=== PATIENT | female | born 1970 | race Caucasian/White ===

== ENCOUNTER → 2018-02-03 | Outpatient (CLI) | payer BC ==
--- NOTE | 2018-02-03 19:43 | ECHOF ---
Referral Reason:R06.09 dyspnea on exertion MEASUREMENTS -------- HEIGHT: 165.1 cm WEIGHT: 99.8 kg BP: RVIDd: 3.1 cm (< 3.3) IVSd: 1.1 cm (0.6 - 1.1) LVIDd: 4.8 cm (3.9 - 5.3) LVPWd: 1.1 cm (0.6 - 1.1) IVSs: 1.7 cm LVIDs: 2.7 cm LVPWs: 1.7 cm LAESV Index (A-L): 24.50 ml/m Ao Diam: 2.8 cm (2.0 - 3.7) AV Cusp: 1.9 cm (1.5 - 2.6) LA Diam: 3.1 cm (2.7 - 3.8) EPSS: 0.8 cm MV E Daniel: 0.94 m/s MV DecT: 194 ms MV A Daniel: 0.68 m/s MV E/A Ratio: 1.38 RAP: 5.00 mmHg RVSP: 21.60 mmHg MV EF SLOPE: 161.39 mm/s (70 - 150) MV EXCURSION: 2.08 cm (> 18.000) FINDINGS -------- Sinus rhythm. This was a technically good study. The left ventricular size is normal. There is borderline concentric left ventricular hypertrophy. Overall left ventricular systolic function is normal with, an EF between 55 - 60 %. The right ventricle is normal in size and function. Normal LA size by volume 22+/-6 ml/m2. The right atrium is normal in size. Aortic valve is trileaflet and is mildly thickened. There is no evidence of aortic regurgitation. There is no evidence of aortic stenosis. The mitral valve leaflets are mildly thickened. There is trace to mild mitral regurgitation. Trace tricuspid regurgitation present. Right ventricular systolic pressure is normal at < 35 mmHg. There is no evidence of pulmonary hypertension. Trace/mild (physiologic) pulmonic regurgitation. The aortic root size is normal. Normal inferior vena cava with normal inspiratory collapse consistent with estimated right atrial pre ssure of 5 mmHg. There is no pericardial effusion. CONCLUSIONS -------- 1. Sinus rhythm. 2. This was a technically good study. 3. The left ventricular size is normal. 4. There is borderline concentric left ventricular hypertrophy. 5. Overall left ventricular systolic function is normal with, an EF between 55 - 60 %. 6. Normal LA size by volume 22+/-6 ml/m2. 7. Aortic valve is trileaflet and is mildly thickened. 8. The mitral valve leaflets are mildly thickened. 9. There is trace to mild mitral regurgitation. 10. Trace tricuspid regurgitation present. 11. Right ventricular systolic pressure is normal at < 35 mmHg. 12. There is no evidence of pulmonary hypertension. 13. Trace/mild (physiologic) pulmonic regurgitation. 14. The aortic root size is normal. 15. There is no pericardial effusion. BILLING DEPARTMENT SUPERVISOR: Reilly Barkley RDCS
== END | disposition home or self-care (01) ==
LOC: RADECHMAIN 08:22
PROVIDERS: ATTEND Family Medicine
DX: I34.0 Nonrheumatic mitral (valve) insufficiency (principal); I37.1 Nonrheumatic pulmonary valve insufficiency; I51.7 Cardiomegaly; I35.8 Other nonrheumatic aortic valve disorders
CPT/HCPCS: 93306

== ENCOUNTER → 2018-03-17 | Outpatient (CLI) | payer BC ==
--- NOTE | 2018-03-17 15:11 | CONS ---
CONSULTATION DATE OF SERVICE: 03/17/2018 A 47-year-old lady has been evaluated in the [facility] for possible obstructive sleep apnea-hypopnea syndrome and for significant excessive daytime sleepiness. HISTORY OF PRESENT ILLNESS/SLEEP-WAKE EVALUATION: Patient's usual sleep schedule from midnight - 1 am until 9 - 9:30 am. She does have problem with falling asleep. Has TV set in bedroom. During the sleep, she is taking different positions. She sleeps with snoring and wakes up from sleep with episodes of gasping for air. In the morning, she wakes up tired, falling asleep during the day. [place] Sleepiness Scale significantly increased to 16. She may take naps up to 2 times, usually around 2 -3 pm. She usually does not see dreams during naps but feel refreshed after naps. No history of hypnagogic hallucinations, sleep paralysis or cataplexy. PAST MEDICAL HISTORY: Positive for hypertension. PAST SURGICAL HISTORY: . MEDICATIONS: Metoprolol. SOCIAL HISTORY: Negative for smoking. Alcohol consumption occasional. FAMILY HISTORY: Heart problems, snoring, cancer, thyroid problems, insomnia. REVIEW OF SYSTEMS: Awakenings from sleep, sleepiness during the day. PHYSICAL EXAM: lady without distress, BP 131/75, HR 72, RR 16, height 5 foot 5-1/8 inches. Weight 223 pounds. Body mass index 36.8, temperature 99. Oxygen saturation on room air 97%. OROPHARYNX: Mallampati III-IV. Neck 15 inches in circumference. Slight restriction of nasal breathing. ABDOMEN: Slightly diabetes. Neck Supple, no JVD. Thyroid is not palpable. LUNGS Clear to percussion and to auscultation. Good air exchange. No wheezing or rhonchi. HEART S1, S2 regular. No murmurs, gallops, or rubs. EXTREMITIES No clubbing or cyanosis. DIRECTOR OF EMERGENCY NURSING Awake, alert, and oriented X3. Cranial nerves 2 to 7 intact. There is no fasciculation or atrophy. noted. No focal deficits observed. IMPRESSION: 1. Snoring, awakenings from sleep with gasping for air, low position of soft palate, sleepiness, obstructive sleep apnea-hypopnea syndrome. 2. Mild obesity, body mass index 36.8. 3. Hypertension. 4. Significant excessive daytime sleepiness. [place] Sleepiness Scale significantly increased to 16. Differential diagnosis would include hypersomnia, although no history of hypnagogic hallucinations, sleep paralysis or cataplexy. PLAN: 1. Polysomnography for evaluation of patient's breathing during sleep. 2. Multiple sleep latency test if sleep study will be negative for obstructive sleep apnea-hypopnea syndrome. 3. CPAP/BiPAP titration if sleep study confirms obstructive sleep apnea-hypopnea syndrome. 4. Preferable position during sleep on the side. 5. No driving if patient feels any sleepiness. 6. I will see patient for follow up visit to explain results of testing and following plan. Thank you very much for referring this patient for consultation. Sincerely, Antonio Patton MD, PhD, FAASM Diplomat of [place] [employer] [place] [employer] Explosive Ordnance Disposal Manager of [facility] [place] MMODL / POOJAN: [id number] /
== END ==
LOC: SLEEP 14:04
PROVIDERS: ATTEND Internal Medicine
DX: G47.33 Obstructive sleep apnea (adult) (pediatric) (principal); E66.9 Obesity, unspecified; I10 Essential (primary) hypertension; Z68.36 Body mass index [BMI] 36.0-36.9, adult; Z99.89 Dependence on other enabling machines and devices; Z79.899 Other long term (current) drug therapy
CPT/HCPCS: 99211

== ENCOUNTER 2018-06-17 11:20 | Day surgery (SDC) | payer BC ==
[2018-06-16 08:45] VITALS: BMI 37.8
[2018-06-17] MEDS ORDERED: LACTATED RINGERS 1,000 ML IV ONE (11:47)
[2018-06-17 11:49] VITALS: TEMP 97.7
[2018-06-17] MEDS ORDERED: PROPOFOL 10 MG/ML 20 ML VIAL IV ONE (12:25)
--- NOTE | 2018-06-17 12:42 | P.PCN ---
Date of Procedure: 06/17/18 Procedure(s) Performed: BRIEF HISTORY: Patient is a 48-year-old pleasant female, scheduled for an elective colonoscopy as a part of screening for colorectal neoplasia. Her mother was diagnosed with colon cancer at age 50. PROCEDURE PERFORMED: Colonoscopy. PREOPERATIVE DIAGNOSIS: Screening for colon cancer/family history of colon cancer. IV sedation per Anesthesia. PROCEDURE: After informed consent was obtained, the patient, was brought into the endoscopy unit. IV sedation was administered by Anesthesia under continuous monitoring. Digital rectal examination was normal. Initially the Olympus CF-160 flexible video colonoscope was then inserted in the rectum, gradually advanced into the cecum without any difficulty. Careful examination was performed as the scope was gradually being withdrawn. Ileocecal valve and the appendiceal orifice were visualized and appeared normal. Prep was excellent. Mucosa of the cecum, ascending colon, transverse colon, descending colon, sigmoid colon, and rectum appeared normal. Scattered sigmoid diverticulosis Retroflexion was performed in the rectum and no lesions were seen. The patient tolerated the procedure well. IMPRESSION: Normal-appearing colon from rectum to cecum with no evidence of colon neoplasia. Scattered sigmoid diverticulosis. RECOMMENDATIONS: Findings of this examination were discussed with the patient as her family. She was advised to have a repeat screening colonoscopy in 5 years because of the family history of colon cancer.
[2018-06-17 12:47] VITALS: RESP 16
[2018-06-17 13:03] VITALS: BP 128/88; PULSE 67
== END 2018-06-17 13:21 | disposition home or self-care (01) ==
LOC: ORWHC2ENDO 11:20
PROVIDERS: ATTEND Internal Medicine Gastroenterology
DX: Z12.11 Encounter for screening for malignant neoplasm of colon (principal); K57.30 Diverticulosis of large intestine without perforation or abscess without bleeding; Z80.0 Family history of malignant neoplasm of digestive organs; I10 Essential (primary) hypertension; Z79.899 Other long term (current) drug therapy; Z88.0 Allergy status to penicillin
CPT/HCPCS: J2704; G0105; 45378

== ENCOUNTER → 2018-09-15 | Outpatient (CLI) | payer BC ==
--- NOTE | 2018-09-15 16:36 | PN ---
PROGRESS NOTE DATE OF SERVICE: 09/15/2018 48-year-old lady has been followed in Sleep Center for treatment of obstructive sleep apnea-hypopnea syndrome. Recently patient had a polysomnogram which showed that she has mild obstructive sleep apnea and then she was started on treatment with CPAP. Today is her first visit after she was started on treatment with CPAP. At the beginning, patient did have some problems with difficulties to use the machine, but then day by day she feels better and presently able to use her machine every night for the whole night without significant problems. [place] Sleepiness Scale today is 7. The patient reported that she sleeps better and she feels better during the day. I checked her CPAP unit, range of the pressure 5-15, average pressure 13.3, usage is every night and 29/30 nights more than 4 hours with average usage 5.8 hours. Leak is only 6 L/minutes which is perfect. Apnea-hypopnea index only 0.2, which is absolutely perfect. MEDICATIONS: Metoprolol. PHYSICAL EXAM: Patient in no distress. BP 147/87, HR 78, RR 16, weight 224, temp 98.2, oxygen saturation at room air 98%. Oropharynx low position of soft palate. Mallampati 3. Neck: Supple, no JVD. Thyroid is not palpable. LUNGS: Clear to percussion and to auscultation. Good air exchange. No wheezing or rhonchi. HEART S1, S2 regular. No murmurs, gallops, or rubs. ABDOMEN: Slightly obese. Soft and nontender. Bowel sounds are present. No organomegaly appreciated. EXTREMITIES No clubbing or cyanosis. TECHNICAL TRAINING INSTRUCTOR Awake, alert, and oriented X3. Cranial nerves 2 to 7 intact. There is no fasciculation or atrophy. noted. No focal deficits observed. IMPRESSION: 1. Obstructive sleep apnea-hypopnea syndrome in mild range with symptoms of excessive daytime sleepiness, respirations fully normalized on CPAP. The patient demonstrated 100% compliance with treatment, benefitting from treatment. No significant sleepiness during the day after the CPAP was started. 2. Hypertension. 3. Obesity. 4. No snoring on CPAP. PLAN: 1. Patient will continue to use CPAP equipment every night for the whole night. 2. Watching and losing weight. 3. Sleep hygiene with regular time in bed for at least 7.5 to 8 hours. 4. No driving if feeling sleepiness. 5. I will maintain all necessary prescriptions for CPAP supplies, tube filters. Thank you very much for allowing me to participate in management of your patient. Sincerely, Antonio Patton MD, PhD, FAASM Diplomat of [place] [employer] [place] [employer] Dietary Service Aide of [facility] [place] MMODL / POOJAN: [id number] /
== END | disposition home or self-care (01) ==
LOC: SLEEP 13:27
PROVIDERS: ATTEND Internal Medicine
DX: G47.33 Obstructive sleep apnea (adult) (pediatric) (principal); I10 Essential (primary) hypertension; E66.9 Obesity, unspecified; Z99.89 Dependence on other enabling machines and devices

== ENCOUNTER → 2019-03-23 | Outpatient (CLI) | payer BC ==
--- NOTE | 2019-03-23 09:04 | CT ---
EXAMINATION TYPE: CT soft tissue neck w con DATE OF EXAM: 03/23/2019 COMPARISON: HISTORY: abnormal MRI CT DLP: 522.4 mGycm CONTRAST: CT scan of the neck is performed with IV Contrast, patient injected with 100 mL of Isovue 300. Contrast enhanced CT of the neck was performed from the skull base through the lung apices. AIRWAY: The supraglottic, glottic, and subglottic portions of the airway appear patent and free of mass. SALIVARY GLANDS: The submandibular and parotid glands are free of mass or inflammatory process. THYROID GLAND: No nodules or masses seen. LYMPH NODES: No adenopathy seen greater than 1cm. LUNG APICES: No nodule or mass is seen. OTHER: Vascular structures are patent. Moderate degenerative changes of the cervical spine. Suspect osseous central stenosis at C5-6. No abscess seen. IMPRESSION: No distinct abnormality of the neck. Suspect central stenosis at C5-6.
== END | disposition home or self-care (01) ==
LOC: RADCTMAIN 08:31
PROVIDERS: ATTEND Orthopaedic Surgery Orthopaedic Surgery of the Spine
DX: M54.2 Cervicalgia (principal)
CPT/HCPCS: 70491; Q9967

== ENCOUNTER 2019-03-29 07:05 | Observation (INO) | payer BC ==
[2019-03-23 12:38] VITALS: BMI 36.1
[~2019-03-29 07:05] MED LIST: BACITRACIN 50,000 UNIT, POLYMYXIN B 500,000 UNIT in SODIUM CHLORIDE 0.9% IRRIGATIO 1,00... IRRIGATION ONE; DEXAMETHASONE SOD PHOSPHATE 10 MG/ML 1 ML VIAL IV ONE; LIDOCAINE 1% 20 ML VIAL (10MG/ML) FOR IV START INTRADERMA PRN; MIDAZOLAM 2 MG/2 ML VIAL IV PRN; ONDANSETRON 4 MG/2 ML VIAL IVP ONE; SCOPOLAMINE 1.5MG/72HR PATCH TRANSDERM ONE
[2019-03-29] MEDS: LACTATED RINGERS 1,000 ML IV SCH ×2 (07:44→23:45)
[2019-03-29] MEDS ORDERED: ROCURONIUM BROMIDE 10 MG/ML 5 ML VIAL IV ONE (07:56)
[2019-03-29] MEDS ORDERED: DEXAMETHASONE SOD PHOS (MDV) 100 MG/10 ML VIAL ONE (07:56)
[2019-03-29] MEDS ORDERED: LIDOCAINE 1% INJ 10MG/ML (20 ML MDV) ONE (07:56)
[2019-03-29] MEDS ORDERED: MIDAZOLAM 2 MG/2 ML VIAL ONE (07:56)
[2019-03-29] MEDS ORDERED: fentaNYL (PF) 50 MCG/ML 2 ML AMP ONE (07:56)
[2019-03-29] MEDS ORDERED: HYDROmorphone (PF) 1 MG/ML ONE (07:56)
[2019-03-29] MEDS ORDERED: SUCCINYLCHOLINE CHLORIDE 100 MG/5 ML SYR IV ONE (07:56)
[2019-03-29] MEDS ORDERED: PROPOFOL 10 MG/ML 20 ML VIAL IV ONE (07:56)
[2019-03-29] MEDS ORDERED: GELATIN SPONGE,ABSORB (LARGE) 1 EACH SPONGE TOPICAL ONE (07:59)
[2019-03-29] MEDS ORDERED: LIDOCAINE 0.5%-EPI 1:200,000 50 ML VIAL SQ ONE (07:59)
[2019-03-29] MEDS ORDERED: THROMBIN (BOVINE) 5,000 UNIT VIAL TOPICAL ONE (07:59)
--- NOTE | 2019-03-29 09:21 | XR ---
EXAMINATION TYPE: XR cervical spine 1V DATE OF EXAM: 03/29/2019 COMPARISON: None HISTORY: Needle placement TECHNIQUE: Lateral cervical spine FINDINGS: There is a metallic device directed to the C5-C6 disc space. Patient is intubated. Preverte bral space is normal. IMPRESSION: 1. Intraoperative localization with needle directed to the C5-6 level
[2019-03-29] MEDS ORDERED: LACTATED RINGERS 1,000 ML IV ONE (10:14)
[2019-03-29] MEDS ORDERED: HYDROcodone/APAP 5-325MG 1 EACH TAB PO PRN (10:41)
[2019-03-29] MEDS ORDERED: BENZOCAINE/MENTHOL LOZENG 1 EACH LOZENGE MUCOUS MEM PRN (10:41)
[2019-03-29] MEDS ORDERED: HYDROmorphone 0.5 MG/0.5 ML SYRINGE IVP PRN (10:41)
[2019-03-29] MEDS ORDERED: MAGNESIUM HYDROXIDE 2,400 MG/10 ML CUP PO PRN (10:41)
--- NOTE | 2019-03-29 10:48 | P.OP ---
Date of Procedure: 03/29/19 Preoperative Diagnosis: Cervical myelopathy, severe cervical stenosis C4 5 C5 6 C6 7, herniated nucleus pulposus C4 5 C5 6 C6 7, left upper extremity weakness, cervical radiculopathy, neck pain Postoperative Diagnosis: Same Anesthesia: GETA Pathology: none sent Condition: stable Disposition: PACU Description of Procedure: BRIEF OPERATIVE NOTE Preoperative Diagnosis:Cervical myelopathy, severe cervical stenosis C4 5 C5 6 C6 7, herniated nucleus pulposus C4 5 C5 6 C6 7, left upper extremity weakness, cervical radiculopathy, neck pain Postoperative Diagnosis:Cervical myelopathy, severe cervical stenosis C4 5 C5 6 C6 7, herniated nucleus pulposus C4 5 C5 6 C6 7, left upper extremity weakness, cervical radiculopathy, neck pain Procedure: Anterior cervical decompression with discectomy and fusion C4 5 C5 6 C6 7 Placement of interbody graftC4 5 C5 6 C6 7 Application of anterior cervical plateC4 5 C5 6 C6 7 Surgeon: Dr. Sarabia Hydroelectric Plant Operator: Hugo Perdomo is present throughout the entire the case persistence during positioning, dissection, exposure, visualization, and all crucial elements of the case as well as closure. Anesthesia: General anesthesia per Dr. Wallis Estimated blood loss: Approximately 100 mL Complications: None apparent Components implanted: Vikos interbody allograft bone graft and K2M [place] anterior cervical plate system with screws Disposition: To recovery room in good stable condition. OPERATIVE INDICATIONS The patient has had long-standing issues in their neck and upper extremities. She's been having severe symptoms since fall of last year which worsening for her despite aggressive conservative care. She didn't developing weakness in her upper extremity as well as some early myelopathic signs. She does not have severe disc herniations with severe stenosis C4 5 C5 6 and C6 7 which correlated well with her neck and upper extremity symptoms. The patient has been through conservative treatment. We discussed various treatment options including surgery, and the patient wishes to proceed with surgery We discussed the risk, patient's alternatives and benefits of surgery including but not limited to, risk of bleeding risk of infection, risk of need for further surgery, risk of decreased, loss of motion, muscle function, malunion nonunion, hardware failure, nerve damage, paralysis, heart attack, and . OPERATIVE SUMMARY After discussing all the risks, patient alternatives and benefits at length, the patient elected to proceed with surgical intervention, signed informed consent, and presented for their procedure. The patient was seen and examined in the preoperative holding area and the surgical site was marked. The patient was given antibiotics and brought to the operating room. The patient was positioned on the operating room table in a supine position being careful to pad any bony prominences and pressure points. The patient was sedated and intubated by anesthesia in standard fashion. Once the airway and C- spine were stabilized the patient's arms were padded and tucked at her side, with her shoulders gently taped. The head was placed in a donut pad with the neck in good neutral alignment and position. We were careful to maintain the patient's cervical spine and good neutral alignment and position throughout. The patient was prepped and draped in a normal standard fashion. An appropriate timeout and keystone protocol performed. We were able to proceed with the surgery. The local wound area was infiltrated with local anesthetic. An incision was made transversely approximately 2-1/2 cm over the appropriate levels at level of C6. Dissection was taken down subcutaneously to the level of the platysma which was split in line with its fibers. Dissection was taken with a carotid approach, with the trachea and esophagus medial and the carotid sheath laterally. We dissected down to the anterior surface of the vertebral bodies f rom C3 4 to C7. Intraoperative x-ray was taken which showed a marker at the appropriate level at C5 6. With the appropriate level positively confirmed, we were able to proceed with discectomy at the appropriate levels. All of the operative levels were exposed appropriately. The patient had all their twitches back, and there was no evidence of recurrent laryngeal issue. The wound was copiously irrigated and suctioned dry as had been done periodically throughout the case. At the appropriate level/levels, starting at C4 5 and then moving the 56 and then C6 7, I established an annulotomy with an 11 blade scalpel. A discectomy was performed with a combination of pituitary rongeurs, curettes, a high-speed bur, and Kerrison rongeurs. The posterior longitudinal ligament was taken down as were any posterior osteophytes. This gave good central and bilateral foraminal decompression. Note was made of severe large disc herniations particularly at C4 5 and C5 6 to the left side which causing severe distortion of the neural structures. There is large amounts of extruded disc herniation which had a be removed. This gave excellent decompression centrally and at the bilateral neural foramen at C4 5 C5 6 and C6 7. There is no evidence of any dural tear or leak. The endplates were prepared with a high-speed bur. With the endplates in good parallel position, I was able to size for the appropriate size interbody graft. The wound was irrigated and suctioned dry the graft was prepared and malleted into position. It had good alignment and position with the anterior surface flush with the anterior surface of the vertebral bodies. This was done similarly the appropriate levels at C4 5 C5 6 and C6 7. With the grafts intact, I was able to measure and contour and appropriate sized plate. The plate was positioned at the midline over the appropriate levels from C4 to C7. Screw holes were established with a hand drill and drill guide. Screws were placed in good alignment and position with excellent bony purchase. They were seated under the locking device. The construct was checked and found to be stable. Intraoperative x-ray was taken which showed good alignment and position of the implants at the appropriate levels. There was no evidence of any dural tear or leak. Good hemostasis was maintained. The wound was copiously irrigated and suctioned dry as had been done periodically throughout the case. The platysma was closed with absorbable suture. The subcutaneous tissue was closed. The subcuticular tissue was closed with absorbable suture. The wound was cleaned and dried and dressed appropriately. A soft cervical collar was placed appropriately. The patient was woken up by anesthesia, extubated, transferred back gently to their hospital bed and brought to the recovery room in good stable condition. The patient will be admitted to the hospital for appropriate postoperative care, medical management and monitoring. We will continue to follow them closely about the postoperative course.
--- NOTE | 2019-03-29 11:03 | XR ---
EXAMINATION TYPE: XR cervical spine 1V DATE OF EXAM: 03/29/2019 COMPARISON: Intraoperative cervical spine same date HISTORY: Anterior cervical fusion TECHNIQUE: Lateral cervical spine FINDINGS: Anterior cervical fusion is present C4-C7. Prevertebral space is normal. Patient is intubat ed. Disc spacers have been placed. IMPRESSION: 1. Postsurgical anterior cervical fusion.
[2019-03-29] MEDS: HYDROmorphone 0.5 MG/0.5 ML SYRINGE IVP PRN ×2 (11:08→11:14)
[2019-03-29] MEDS ORDERED: diphenhydrAMINE 50 MG/ML 1 ML VIAL IVP ONE (11:26)
[2019-03-29] MEDS ORDERED: ONDANSETRON 4 MG TAB PO PRN (17:42)
[2019-03-29] MEDS ORDERED: ONDANSETRON ODT 4 MG TAB PO PRN (18:03)
[2019-03-29] MEDS: HYDROcodone/APAP 5-325MG 1 EACH TAB PO PRN ×2 (18:12→23:46)
[2019-03-29] MEDS ORDERED: GABAPENTIN 300 MG CAP PO SCH (21:00)
[2019-03-29] MEDS: SODIUM CHLORIDE 0.9% 1,000 ML IV SCH (23:39)
[2019-03-30] MEDS: SODIUM CHLORIDE 0.9% 1,000 ML IV SCH ×2 (00:40→07:36)
[2019-03-30 08:41] VITALS: BP 124/68; PULSE 77; RESP 16; TEMP 98.3
--- NOTE | 2019-03-30 09:26 | P.DS ---
Providers Date of admission: 03/29/19 20:27 Attending physician: Evens Sarabia [facility] The patient presented on the day of admission as per their operative note. She had significant issues at her upper extremities and her neck with severe spinal stenosis with large disc herniations at her cervical spine that correlated well with her neck and upper extremity symptoms. The patient underwent anterior cervical decompression with discectomy and fusion as per her operative note. She feels her arms are doing better already since her surgery. She feels she is making good progress postoperatively. She is been able to tolerate soft diet and has been able to mobilize and use the bathroom on her own. Physical Exam The incision site is clean dry and intact. There is no erythema no drainage. There is no purulence no evidence of infection. Her neck is soft and supple. There is no significant swelling. Abdomen soft and nontender. Chest has good excursion with deep inspiration and expiration. The patient has active and passive range of motion intact at the upper and lower extremities. There is no acute change in neurologic status. She has good use at her bilateral upper extremities this morning. Hospital Course Postoperative day #1 status post anterior cervical decompression with discectomy and fusion C4 5 C5 6 C6 7 for her severe cervical stenosis with cervical myelopathy and disc herniations The patient has been making good progress postoperatively. She is happy with results thus far. They have completed the prophylactic antibiotics without any signs or symptoms of infection. The patient has been able to advance their diet, and is tolerating diet adequately. The pain was initially controlled with IV medications and is now controlled appropriately with oral medications. The p atient has been able to increase their mobilization. The patient has progressed appropriately. I think they are in good stable condition for discharge today. They will be sent home with appropriate prescriptions. I answered their questions to the best of my ability in a language that they can understand and they are agreeable with the plan. They will follow up as directed in approximately one week or sooner if she is having any problems. Patient Condition at Discharge: Good Plan - Discharge Summary Discharge Rx Participant: Yes New Discharge Prescriptions: New HYDROcodone/APAP 5-325MG [[place] 5] 1 each PO Q6HR PRN #28 tab PRN Reason: Pain No Action HYDROcodone/APAP 5-325MG [[place] 5-325] 1 tab PO Q6HR PRN PRN Reason: Pain Gabapentin [Neurontin] 300 mg PO HS Discharge Medication List Gabapentin [Neurontin] 300 mg PO HS 03/23/19 [History] HYDROcodone/APAP 5-325MG [[place] 5-325] 1 tab PO Q6HR PRN 03/23/19 [History] HYDROcodone/APAP 5-325MG [[place] 5] 1 each PO Q6HR PRN #28 tab 03/30/19 [Rx] Follow up Appointment(s)/Referral(s): Evens Sarabia DO [Doctor of Osteopathic Medicine] - 1 Week (Patient has appointment scheduled for for very ) Activity/Diet/Wound Care/Special Instructions: Keep site clean. May shower with waterproof Tegaderm intact. Do not soak in a tub. After 72 hours postoperatively, patient May remove dressing and then may shower with area uncovered. Leave Steri-Strips intact and allow them to fray off on their own. May ambulate as tolerated. Avoid heavy or rigorous activity. No repetitive bending twisting or lifting. No overhead work. Discharge Disposition: HOME SELF-CARE
== END 2019-03-30 11:08 | disposition home or self-care (01) ==
LOC: OR 07:05 → 4SSUR 10:38 → OR 22:13
PROVIDERS: ADMIT Orthopaedic Surgery Orthopaedic Surgery of the Spine; ATTEND Orthopaedic Surgery Orthopaedic Surgery of the Spine
DX: M48.02 Spinal stenosis, cervical region (principal); M50.00 Cervical disc disorder with myelopathy, unspecified cervical region; M50.121 Cervical disc disorder at C4-C5 level with radiculopathy; M25.78 Osteophyte, vertebrae; Z97.3 Presence of spectacles and contact lenses; I10 Essential (primary) hypertension; G47.33 Obstructive sleep apnea (adult) (pediatric); R53.1 Weakness; Z97.2 Presence of dental prosthetic device (complete) (partial); Z79.891 Long term (current) use of opiate analgesic; Z79.899 Other long term (current) drug therapy; Z88.0 Allergy status to penicillin
CPT/HCPCS: 81025; 86900; 86901; 86850; 72020; 36415; 22551; 22552 ×2; 22845; 20931; G0378 ×2; C1713 ×2; C1762 ×2; J2250; J1200; J0690; J2405; J2001; J3010; J1170 ×2; J1100; J0330; J2704

== ENCOUNTER → 2019-08-07 | Outpatient (CLI) | payer BC ==
[2019-08-07 12:22] LABS: Appearance,Urine Clear (Clear); Bilirubin,Urine Negative (Negative); Blood,Urine Negative (Negative); Color,Urine Yellow; Glucose,Urine (UA) Negative (Negative); Ketones,Urine Negative (Negative); Leukocyte Esterase,Urine Negative (Negative); Nitrite,Urine Negative (Negative); Protein,Urine Negative (Negative); Specific Gravity,Urine 1.025 (1.001-1.035); Urobilinogen,Urine <2.0 mg/dL (<2.0)
[2019-08-07 12:24] LABS: Basophils % (A) 0 %; Eosinophils # (A) 0.1 k/uL (0-0.7); Eosinophils % (A) 1 %; HCT 38.1 % (34.0-46.0); HGB 12.2 gm/dL (11.4-16.0); Hypochromasia Slight; Lymphocytes # (A) 1.6 k/uL (1.0-4.8); Lymphocytes % (A) 20 %; MCH 29.7 pg (25.0-35.0); MCHC 31.9 g/dL (31.0-37.0); MCV 93.1 fL (80.0-100.0); Mean Platelet Volume 7.3; Monocytes # (A) 0.3 k/uL (0-1.0); Monocytes % (A) 4 %; Neutrophils # (A) 5.6 k/uL (1.3-7.7); Neutrophils % (A) 72 %; Platelet Count 317 k/uL (150-450); RBC 4.09 m/uL (3.80-5.40); RDW 13.7 % (11.5-15.5); WBC 7.9 k/uL (3.8-10.6)
[2019-08-07 21:53] LABS: % Iron Saturation 15.9 (12.00-45.00); African American GFR (CKD) 122.3 (60.0-200.0); Albumin 4.3 g/dL (3.80-4.90); Albumin/Globulin Ratio 2.05 (1.60-3.17); Anion Gap 6.9 mmol/L (4.00-12.00); BUN/Creat Ratio 23.33 Ratio (12.00-20.00); Calcium 9.3 mg/dL (8.7-10.3); Carbon Dioxide 26.1 mmol/L (21.6-31.8); Chol/HDL Ratio 3.17; Globulin 2.1 g/dL (1.6-3.3); Non-African American GFR(CKD) 105.5 (60.0-200.0); Total Bilirubin 0.4 mg/dL (0.2-1.2); Total Protein 6.4 g/dL (6.2-8.2)
[2019-08-07 22:00] LABS: Follicle Stimulating Hormone 5.9 mIU/mL; T4, Free (Free Thyroxine) 0.9 ng/dL (0.80-1.80)
[2019-08-07 22:02] LABS: Folate, Serum 9.3 ng/mL
[2019-08-07 22:04] LABS: Ferritin 19.9 ng/mL (10.0-291.0); Progesterone 0.2 ng/mL
[2019-08-07 23:07] LABS: Estradiol 140.9 pg/mL
== END | disposition home or self-care (01) ==
LOC: LABWHC1 10:39
PROVIDERS: ATTEND Family Medicine
DX: N95.1 Menopausal and female climacteric states (principal); L85.9 Epidermal thickening, unspecified; R53.82 Chronic fatigue, unspecified; Z13.220 Encounter for screening for lipoid disorders
CPT/HCPCS: 36415; 80053; 80061; 81003; 82040; 82150; 82306; 82550; 82607; 82670; 82672; 82728; 82746; 83001; 83540; 83550; 83690; 84144; 84270; 84403; 84439; 84443; 84630; 85025; 86038; 86800

== ENCOUNTER → 2019-12-27 | Outpatient (CLI) | payer BC ==
--- NOTE | 2019-12-27 12:03 | SFUN ---
SLEEP CENTER FOLLOW UP NOTE DATE OF SERVICE: 12/27/2019 A 49-year-old lady who has been followed in the Sleep Center for treatment of obstructive sleep apnea-hypopnea syndrome. Patient continued to use her CPAP equipment every night, likes her machine. Sleeps well with the machine. At the same time, patient continued to feel sleepiness during the day. [place] Sleepiness Scale increased to 16, taking Colcrys. Sleep schedule showed that she usually sleeps from around 11 p.m. to 4 or 5 a.m/ and then she wakes up because her wakes up at that time and then she may take additional nap for 1 to 2 hours after that. I checked [place] and she may take naps up to 1 times per day up to 1-2 times per day total. A check your CPAP unit. Range of the pressure 5-15, average pressure 13.7, usage 29/30 nights for more than 4 hours. Average usage is 6.1 hours per night. Leak is only 2 L/minute. Apnea-hypopnea index pm;;[[0.1, which is perfect. Medications none at the present time. PHYSICAL EXAM: Patient in no distress, BP 159/72, HR 74, RR 15, height 5, 6, weight 222, BMI 35.8, temperature is 98.4, oxygen saturation at room air 97%. OROPHARYNX: Low position of soft palate, Mallampati 3. ABDOMEN: Slightly obese. HEENT: PERRLA, EOMI, evaluation of oropharynx showed tongue protrudes midline. NECK: Supple, no JVD. Thyroid is not palpable. LUNGS: Clear to percussion and to auscultation. Good air exchange. No wheezing or rhonchi. HEART: S1, S2 regular. No murmurs, gallops, or rubs. EXTREMITIES: No clubbing or cyanosis. ADVICE LINE RN: Awake, alert, and oriented X3. Cranial nerves 2 to 7 intact. There is no fasciculation or atrophy. noted. No focal deficits observed. IMPRESSION: 1. Obstructive sleep apnea-hypopnea syndrome. Patient demonstrated great compliance with treatment, benefitting from treatment, normal respiration with CPAP. 2. Patient has symptoms of excessive daytime sleepiness. [place] Sleepiness Scale increased to 16. She takes up to 2 naps a day, possibly secondary to insufficient amount of sleep during the night. 3. Obesity, BMI 35.8. 4. Hypertension in the office today. 5. Monitoring blood pressure with the primary care physician, if necessary medications for hypertension. 6. If the patient continues to have symptoms of excessive daytime sleepiness while after increasing sleep time during the night. She may be a candidate for multiple sleep latency test for objective evaluation of your excessive daytime sleepiness to check for any additional diagnosis of hypersomnia. Thank you very much for allowing me to participate in management of patient. Sincerely, Antonio Patton MD, PhD, FAASM Diplomat of [employer] [employer] Head Nurse of [facility] [place] MMODL / IJN: [id number] /
== END | disposition home or self-care (01) ==
LOC: SLEEP 10:26
PROVIDERS: ATTEND Internal Medicine
DX: G47.33 Obstructive sleep apnea (adult) (pediatric) (principal); E66.9 Obesity, unspecified; I10 Essential (primary) hypertension; Z68.35 Body mass index [BMI] 35.0-35.9, adult; Z99.89 Dependence on other enabling machines and devices

== ENCOUNTER → 2020-03-01 | Outpatient (CLI) | payer BC ==
--- NOTE | 2020-03-01 07:56 | US ---
EXAMINATION TYPE: US kidneys/renal and bladder DATE OF EXAM: 03/01/2020 COMPARISON: NONE CLINICAL HISTORY: N39.0 Urinary tract infection, site not specified. Recurrent UTI; perimenopausal pe r patient EXAM MEASUREMENTS: Right Kidney: 11.6 x 5.5 x 4.7 cm Left Kidney: 11.6 x 6.5 x 6.8 cm Post Void Residual Volume: 15.0 mL Right Kidney: No hydronephrosis or masses seen Left Kidney: mild mid calyceal dilatation noted; lobular mid cortex noted with appearance of dromedar y hump Bladder: small amount of internal echoes seen right inferior bladder Bilateral Jets seen: yes Normal Post Void Residual: yes IMPRESSION: Minimal left-sided hydronephrosis. No nephrolithiasis.
== END | disposition home or self-care (01) ==
LOC: RADUSWWP 06:58
PROVIDERS: ATTEND Family Medicine
DX: N13.30 Unspecified hydronephrosis (principal)
CPT/HCPCS: 76770

== ENCOUNTER → 2020-07-04 | Outpatient (CLI) | payer BC ==
--- NOTE | 2020-07-04 14:42 | SFUN ---
SLEEP CENTER FOLLOW UP NOTE DATE OF SERVICE: 07/04/2020 This 50-year-old lady has been followed in Sleep Center for treatment of obstructive sleep apnea-hypopnea syndrome. Patient continued to use her CPAP equipment every night. No snoring with the machine. At the same time, the patient continued to feel sleepiness during the day. In the previous visit, [place] Sleepiness Scale was 16. Today, it is slightly better, is down to 13. Occasionally, she takes naps during the day. I checked her CPAP unit. Pressure is 5-15 with average pressure of 14, usage 30 out of 30 nights and 28 out of 30 nights more than 4 hours. Average usage is 6 hours per night. Leak is only 2 L/minute, which is perfect. Apnea-hypopnea index only 0.3, which is absolutely normal. MEDICATIONS: None at the present time. PHYSICAL EXAMINATION: GENERAL: Patient in no distress. VITAL SIGNS: BP 128/71, HR 82, RR 18, height 5 feet 6 inches, weight 219, which is 3 pounds less than during the previous visit, temperature 97.6, oxygen saturation on room air 97%, body mass index 35. HEENT: PERRLA, EOMI, evaluation of oropharynx low position of soft palate. Mallampati 3. NECK: Supple, no JVD. Thyroid is not palpable. LUNGS: Clear to percussion and to auscultation. Good air exchange. No wheezing or rhonchi. HEART: S1, S2 regular. No murmurs, gallops, or rubs. ABDOMEN: Soft and nontender. Bowel sounds are present. No organomegaly appreciated. EXTREMITIES: No clubbing or cyanosis. BLUE LEATHER SETTER: Awake, alert, and oriented X3. Cranial nerves 2 to 7 intact. There is no fasciculation or atrophy. noted. No focal deficits observed. IMPRESSIONS: 1. Obstructive sleep apnea-hypopnea syndrome. Patient demonstrated close to 100% compliance with treatment, benefiting from treatment. 2. Patient continued to have symptoms of excessive daytime sleepiness. [place] Sleepiness Scale increased to 13 today, but it is better than during the previous visit 2016. Differential diagnosis include possibility of hypersomnia for insufficient amount of sleep. 3. Obesity. 4. Previously hypertension in the office, normal blood pressure today. 5. Menopause. PLAN: 1. We will monitor patient's sleepiness. If she will continue to feel sleepiness with normal sleep schedule on CPAP may consider MSLT for objective evaluation of sleepiness and if necessary . 2. Patient will continue to use PAP equipment every night for the whole night. 3. Sleep hygiene with regular time in bed for at least 7-1/2 to 8 hours. 4. Precautions related to driving. No driving if feeling sleepiness. 5. I will maintain all necessary prescription for PAP supplies including mask, tube, filters. 6. Watching weight. 7. Follow-up visit in 6 months or earlier if patient has any problems. I spent with the patient and medical record more than 30 minutes. Sincerely, Antonio Patton MD, PhD, FAASM Diplomat of [place] [employer] Specialties [employer] Board of Internal Medicine Mild Disabilities Teacher of [facility] [place] MMODL / POOJAN: [id number] /
== END ==
LOC: SLEEP 10:22
PROVIDERS: ATTEND Internal Medicine
DX: G47.33 Obstructive sleep apnea (adult) (pediatric) (principal); E66.9 Obesity, unspecified; I10 Essential (primary) hypertension; Z78.0 Asymptomatic menopausal state; Z68.35 Body mass index [BMI] 35.0-35.9, adult; Z88.0 Allergy status to penicillin

== ENCOUNTER → 2020-07-25 | Outpatient (CLI) | payer BC ==
--- NOTE | 2020-07-25 15:30 | EST ---
EXERCISE STRESS DATE OF SERVICE: 07/25/2020 AGE: 50 SEX: F HT: 5'5" WT: 231 lbs. PROTOCOL: STAGE: 3 DURATION OF EXERCISE: 8:19 HEART RATE REST: 55 BLOOD PRESSURE REST: 120/78 MAXIMUM HEART RATE ACHIEVED: 148 MAXIMUM BLOOD PRESSURE: 187/61 85% MPHR: 143 100% MPHR: 168 METS: 9.9 RESULTS: Baseline rhythm is sinus mechanism rate of 55, poor R progression, left axis deviation. Baseline blood pressure 120/78 mmHg. The patient exercised on Sha protocol for 8 minutes reaching peak rate 148 beats per minute which is equal to 88% maximum predicted heart rate. Peak blood pressure 177/104 mmHg. Test was terminated secondary to SVT. There was no chest pain. Electrocardiograph monitoring revealed no evidence of diagnostic ischemic ST deviation. CONCLUSION: 1. Average exercise tolerance. 2. Normal electrocardiograph stress testing to exercise with no evidence of exercise induced ischemia. MMODL / IJN: [id number] /
== END | disposition home or self-care (01) ==
LOC: RADNMMAIN 08:37
PROVIDERS: ATTEND Family Medicine
DX: Z82.49 Family history of ischemic heart disease and other diseases of the circulatory system (principal)
CPT/HCPCS: 93017

== ENCOUNTER → 2021-03-13 | Outpatient (CLI) | payer BC ==
--- NOTE | 2021-03-13 17:55 | SFUN ---
SLEEP CENTER FOLLOW UP NOTE DATE OF SERVICE: 03/13/2021 This 50-year-old lady has been followed in Sleep Center for treatment of obstructive sleep apnea-hypopnea syndrome. The patient continues to use her CPAP equipment every night for the whole night, but she has sleepiness during the day while using her CPAP. [place] Sleepiness Scale increased to 13. She takes additional naps during the day. I checked her CPAP unit. Range of the pressure is 5 to 15, average pressure 13.9. Usage 30/30 nights for more than 4 hours, average 6.6 hours per night. Leak is 2 L/minute, which is minimal. Apnea-hypopnea index is only 0.2, which is absolutely perfect. MEDICATIONS: None. PHYSICAL EXAMINATION: GENERAL: Pleasant patient in no distress. VITAL SIGNS: BP 132/86, HR 70, RR 16, height 5 feet 6 inches, weight 226, body mass index 36.4, temperature 98.2, oxygen saturation at room air 98%. HEENT: PERRLA, EOMI, evaluation of oropharynx showed tongue protrudes midline. Low position of soft palate; Mallampati III. NECK: Supple, no JVD. Thyroid is not palpable. LUNGS: Clear to percussion and to auscultation. Good air exchange. No wheezing or rhonchi. HEART: S1, S2 regular. No murmurs, gallops, or rubs. ABDOMEN: Slightly obese. EXTREMITIES: No clubbing or cyanosis. AUTO WINDER: Awake, alert, and oriented X3. Cranial nerves 2 to 7 intact. There is no fasciculation or atrophy. noted. No focal deficits observed. IMPRESSION: 1. Obstructive sleep apnea-hypopnea syndrome. Patient demonstrated 100% compliance with treatment. Totally normal respiration on CPAP, average pressure 14 cm of water. 2. Obesity; body mass index 36.4. 3. Sleepiness. [place] Sleepiness Scale increased to 13. The patient take additional naps during the day. Differential diagnosis should include hypersomnia. 4. Menopause. PLAN: 1. Multiple sleep latency test after night on CPAP for objective evaluation of patient's symptoms of excessive daytime sleepiness. 2. Sleep hygiene with regular time in bed for at least 8 hours. The patient should use CPAP equipment every night for the whole night. 3. Losing weight. 4. No driving if feeling sleepiness. Thank you very much for allowing me to participate in the management of your patient. Sincerely, Antonio Stefadu, MD, PhD, FAASM Diplomat of [place] [employer] Specialties Sleep Medicine Board of [place] Board of Internal Medicine Senior Database Administrator of [facility] [place] ANI / SHRAVAN: [id number] /
== END ==
LOC: SLEEP 15:27
PROVIDERS: ATTEND Internal Medicine
DX: G47.33 Obstructive sleep apnea (adult) (pediatric) (principal); E66.9 Obesity, unspecified; Z78.0 Asymptomatic menopausal state; Z99.89 Dependence on other enabling machines and devices; Z68.36 Body mass index [BMI] 36.0-36.9, adult; Z88.0 Allergy status to penicillin

== ENCOUNTER → 2021-09-25 | Outpatient (CLI) | payer BC ==
--- NOTE | 2021-09-25 12:23 | P.PN ---
Subjective DATE: 09/25/2021 FOLLOW UP VISIT. Patient with obstructive sleep apnea hypopnea syndrome return to sleep center for follow-up visit. Information from previous visit have been reviewed. Patient is using PAP equipment every night for the whole night, getting PAP supplies in time. The patient does not have significant problems with the mask, PAP unit and humidification. [place] sleepiness scale is 12. I checkedPAP unit. PAP unit pressure 5-15, average 14.7 cm H2O. Usage is 100 % for more then 4 hours, average 6.9 hours per night. Leak is 2 l/m, which is in acceptable range. Apnea Hypopnea Index is 0.1, which is normal. MEDICATIONS: None During physical exam: GENERAL: A pleasant patient without any distress. VITAL SIGNS: BP 129/79, HR 80, RR 16, weight 232.6, temperature 97.2, oxygen saturation at room air 98 % . HEENT: PERRLA, EOMI.low position of soft palate, Mallapati 3 . NECK: Supple. No JVD. LUNGS: Clear to percussion and to auscultation. Good air exchange. No wheezing or rhonchi. HEART: S1, S2 regular. ABDOMEN: Soft and nontender. Slightly obese EXTREMITIES: No clubbing or cyanosis. SENIOR JAVA WEB DEVELOPER: Awake, alert, and oriented x3. No focal deficit. Impressions: 1. Obstructive sleep apnea-hypopnea syndrome. Patient demonstrated great compliance with treatment, benefiting from treatment. 2. Obesity, patient increases weight of 6 pounds. 3. Menopause. Plan: 1. Continue using PAP equipment every night for the whole night. 2. To change air filter at least 1-2 times per month. 3. PAP unit should stay lower then position of the head. 4. Advised patient to remove all remaining water from humidifier canister daily and make it dry after each usage. Refill canister with fresh distilled water before each usage. 5. Sleep hygiene with regular time in bed for at least 8 hours. 6. Precautions related to driving. No driving if feel any sleepiness. 7. I will maintain prescription for PAP supplies including mask, tube, filters. 8. Follow up visit in 6 months or earlier if patient has any problems. 9. Watching weight. Thank you very much for allowing me to participate in the management of your patient. Antonio Patton MD, PhD, FAASM. Diplomat of [place] Board of Sleep Medicine, Sleep Medicine Board by [place] Board of Internal Medicine Store Specialist of [facility] [place]
== END ==
LOC: SLEEP 10:34
PROVIDERS: ATTEND Internal Medicine
DX: G47.33 Obstructive sleep apnea (adult) (pediatric) (principal); E66.9 Obesity, unspecified; Z78.0 Asymptomatic menopausal state; Z99.89 Dependence on other enabling machines and devices; Z88.0 Allergy status to penicillin
CPT/HCPCS: 99212

== ENCOUNTER → 2022-10-07 | Outpatient (CLI) | payer BC ==
--- NOTE | 2022-10-07 18:30 | P.PN ---
Subjective DATE: 10/07/2022 FOLLOW UP VISIT. Patient with obstructive sleep apnea hypopnea syndrome return to sleep center for follow-up visit. Information from previous visit have been reviewed. Patient is using PAP equipment every night for the whole night, getting PAP supplies in time. The patient does not have significant problems with the mask, PAP unit and humidification. [place] sleepiness scale is 12, which is slightly increased. I checked information from PAP unit. PAP unit pressure 5-15, average 14.3 cm H2O. Usage is and 100 % for more then 4 hours, average 7 hours per night. Leak is 8 l/m, which is in acceptable range. Apnea Hypopnea Index is 0.2, which is normal. MEDICATIONS:1. Vitamin D 2. Fish oil During physical exam: GENERAL: A pleasant patient without any distress. VITAL SIGNS: BP 116/80, HR 67, RR 12 , weight 233, temperature 97.2, oxygen saturation at room air 98 % . HEENT: PERRLA, EOMI.low position of soft palate, Mallapati 3 . NECK: Supple. No JVD. LUNGS: Clear to percussion and to auscultation. Good air exchange. No wheezing or rhonchi. HEART: S1, S2 regular. ABDOMEN: Soft and nontender. Slightly obese EXTREMITIES: No clubbing or cyanosis. MANAGER ARCHITECTURE: Awake, alert, and oriented x3. No focal deficit. Impressions: 1. Obstructive sleep apnea-hypopnea syndrome. Patient demonstrated great compliance with treatment, benefiting from treatment. 2. Obesity, BMI 38.5. 3. Menopause. Plan: 1. Continue using PAP equipment every night for the whole night. 2. To change air filter at least 1-2 times per month. 3. PAP unit should stay lower then position of the head. 4. Advised patient to remove all remaining water from humidifier canister daily and make it dry after each usage. Refill canister with fresh distilled water before each usage. 5. Sleep hygiene with regular time in bed for at least 8 hours. 6. Precautions related to driving. No driving if feel any sleepiness. 7. I will maintain prescription for PAP supplies including mask, tube, filters. 8. Follow up visit in 6 months or earlier if patient has any problems. 9. Watching and losing weight. Thank you very much for allowing me to participate in the management of your patient. Antonio Patton MD, PhD, FAASM. Diplomat of [place] Board of Sleep Medicine, Sleep Medicine Board by [employer] Board of Internal Medicine Keno Terminal Operator of [facility] [place]
== END ==
LOC: 3 N SLEEP 10:06
PROVIDERS: ATTEND Internal Medicine
DX: G47.33 Obstructive sleep apnea (adult) (pediatric) (principal); E66.9 Obesity, unspecified; Z78.0 Asymptomatic menopausal state; Z68.38 Body mass index [BMI] 38.0-38.9, adult; Z99.89 Dependence on other enabling machines and devices; Z88.0 Allergy status to penicillin
CPT/HCPCS: 99212

== ENCOUNTER → 2023-03-30 | Outpatient (CLI) | payer BC ==
[2023-03-30 14:43] LABS: HCT 41.1 % (34.0-46.0); HGB 13.5 gm/dL (11.4-16.0); MCH 30.3 pg (25.0-35.0); MCHC 32.9 g/dL (31.0-37.0); Mean Platelet Volume 7.7; Platelet Count 314 k/uL (150-450); RBC 4.46 m/uL (3.80-5.40); RDW 13.1 % (11.5-15.5); WBC 9.6 k/uL (3.8-10.6)
[2023-03-30 14:56] LABS: ALT 28 U/L (4-34); AST 28 U/L (14-36); African American GFR (CKD) >90 (>60 ml/min/1.73 sqM); Albumin 4.6 g/dL (3.5-5.0); Albumin/Globulin Ratio 1.5; Alkaline Phosphatase 120 U/L (38-126); Anion Gap 9 mmol/L; Blood Urea Nitrogen 15 mg/dL (7-17); Calcium 9.7 mg/dL (8.4-10.2); Carbon Dioxide 25 mmol/L (22-30); Chloride 107 mmol/L (98-107); Glucose 84 mg/dL (74-99); Non-African American GFR(CKD) >90 (>60 ml/min/1.73 sqM); Sodium 141 mmol/L (137-145); Total Bilirubin 0.6 mg/dL (0.2-1.3); Total Protein 7.6 g/dL (6.3-8.2)
[2023-03-30 15:01] LABS: Potassium 4.3 mmol/L (3.5-5.1)
--- NOTE | 2023-03-30 16:26 | CT ---
EXAMINATION TYPE: CT abdomen pelvis w con CT DLP: 1724.6 mGycm, Automated exposure control for dose reduction was used. DATE OF EXAM: 03/30/2023 2:46 PM COMPARISON: None. CLINICAL INDICATION:Female, 52 years old with history of R10.32 LEFT LOWER QUADRANT PAIN; left lower quadrant pain TECHNIQUE: Axial CT of the abdomen and pelvis. Sagittal and coronal reformats were created on a [employer] workstation. Contrast used:100 mL of Isovue 300 with IV Contrast, (none if empty) Oral contrast used: with Oral Contrast (none if empty) FINDINGS: LOWER CHEST: Unremarkable ABDOMEN LIVER: Suspect diffuse hepatic steatosis. Liver appears prominent, right lobe is approximately 20 cm. GALLBLADDER AND BILE DUCTS: Unremarkable gallbladder. No biliary ductal dilatation. PANCREAS: Unremarkable. SPLEEN: Unremarkable. ADRENAL GLANDS: Unremarkable. KIDNEYS AND URETERS: Kidneys enhance symmetrically. Developmental transverse lie noted on the right. No evidence of hydronephrosis or visible renal calculus. Small parapelvic and renal calculi. The uret ers are unremarkable. PELVIS BLADDER: Unremarkable REPRODUCTIVE: Uterus and adnexal regions appear grossly unremarkable, though not well assessed by CT. Suspect arcuate uterus. ABDOMEN & PELVIS STOMACH AND BOWEL: Stomach and small bowel are nondistended, no evidence of obstruction. Contrast tr averses the stomach and small bowel loops, reaching the level of the proximal sigmoid colon. The appe ndix appears within normal limits. PERITONEUM/RETROPERITONEUM: No evidence of pneumoperitoneum or free fluid. VASCULATURE: Aorta and major branches are grossly unremarkable. No AAA. Portal veins are enhancing. Splenic vein is patent. LYMPH NODES: No gross evidence for lymphadenopathy. SOFT TISSUE/ABDOMINAL WALL: Small fat-containing umbilical hernia. MUSCULOSKELETAL: No acute osseous abnormalities. Mild/moderate disc degeneration changes are present throughout the thoracolumbar spine. IMPRESSION: 1. No acute abnormality demonstrated to explain the patient's symptoms. 2. Hepatomegaly and hepatic steatosis.
== END | disposition home or self-care (01) ==
LOC: RADCTMAIN 12:22
PROVIDERS: ATTEND Family Medicine
DX: K76.0 Fatty (change of) liver, not elsewhere classified (principal); R16.0 Hepatomegaly, not elsewhere classified
CPT/HCPCS: 80053; 85027; 74177; Q9967

== ENCOUNTER → 2023-06-23 | Outpatient (CLI) | payer BC ==
--- NOTE | 2023-06-23 14:05 | P.PN ---
Subjective DATE: 06/23/2023 FOLLOW UP VISIT. Patient with obstructive sleep apnea hypopnea syndrome return to sleep center for follow-up visit. Information from previous visit have been reviewed. Patient is using PAP equipment every night for the whole night, getting PAP supplies in time. The patient does not have significant problems with the mask, PAP unit and humidification. [place] sleepiness scale is 8, which is in normal range. I checked information from PAP unit. PAP unit pressure 5-15, average 14.6 cm H2O. Usage is 100% for more then 4 hours, average 7.2 hours per night. Leak is 7 l/m, which is in acceptable range. Apnea Hypopnea Index is 0.3, which is normal. MEDICATIONS: None During physical exam: GENERAL: A pleasant patient without any distress. VITAL SIGNS: Please see below, weight 235.0 pounds. HEENT: PERRLA, EOMI.low position of soft palate, Mallapati 3 . NECK: Supple. No JVD. LUNGS: Clear to percussion and to auscultation. Good air exchange. No wheezing or rhonchi. HEART: S1, S2 regular. ABDOMEN: Soft and nontender.[] EXTREMITIES: No clubbing or cyanosis. GENERATOR OPERATOR STRAIGHT BEVEL GEAR: Awake, alert, and oriented x3. No focal deficit. Impressions: 1. Obstructive sleep apnea-hypopnea syndrome. Patient demonstrated great compliance with treatment, benefiting from treatment. 2. Obesity, BMI in the range of 38. 3. Menopause. Plan: 1. Continue using PAP equipment every night for the whole night. 2. To change air filter at least 1-2 times per month. 3. PAP unit should stay lower then position of the head. 4. Advised patient to remove all remaining water from humidifier canister daily and make it dry after each usage. Refill canister with fresh distilled water before each usage. 5. Sleep hygiene with regular time in bed for at least 8 hours. 6. Precautions related to driving. No driving if feel any sleepiness. 7. I will maintain prescription for PAP supplies including mask, tube, filters. 8. Watching and losing weight. 9. Follow up visit in 6 months or earlier if patient has any problems. Thank you very much for allowing me to participate in the management of your patient. Antonio Patton MD, PhD, FAASM. Diplomat of [place] Board of Sleep Medicine, Sleep Medicine Board by [place] Board of Internal Medicine Hand Tube Bender of [facility] [place] Objective - Vital Signs Vital signs: Vital Signs Temp 97.7 F 06/23/23 13:51 Pulse 66 06/23/23 13:51 Resp 16 06/23/23 13:51 BP 133/81 06/23/23 13:51 Pulse Ox 97 06/23/23 13:51 FiO2 Intake & Output 06/22/23 06/23/23 06/23/23 18:59 06:59 18:59 Weight 106.594 kg
[2023-06-23 14:30] VITALS: BP 133/81; PULSE 66; RESP 16; TEMP 97.7
== END | disposition home or self-care (01) ==
LOC: 3 N SLEEP 13:41
PROVIDERS: ATTEND Internal Medicine
DX: G47.33 Obstructive sleep apnea (adult) (pediatric) (principal); E66.9 Obesity, unspecified; Z68.38 Body mass index [BMI] 38.0-38.9, adult; Z78.0 Asymptomatic menopausal state; Z99.89 Dependence on other enabling machines and devices; Z88.0 Allergy status to penicillin
CPT/HCPCS: 99212

== ENCOUNTER 2023-09-08 07:19 | Day surgery (SDC) | payer BC ==
[2023-09-08] MEDS ORDERED: LIDOCAINE 1% (10MG/ML) FOR IV START INTRADERMA PRN (07:58)
[2023-09-08] MEDS: IV FLUID CONTINUATION 1,000 ML IV ONE (08:03)
[2023-09-08 08:18] VITALS: TEMP 97
[2023-09-08] MEDS: LACTATED RINGERS 1,000 ML IV SCH (08:21)
[2023-09-08] MEDS ORDERED: PROPOFOL 10 MG/ML 20 ML VIAL IV ONE (08:52)
--- NOTE | 2023-09-08 09:07 | P.PCN ---
Date of Procedure: 09/08/23 Procedure(s) Performed: BRIEF HISTORY: Patient is a 53-year-old pleasant white female scheduled for an elective colonoscopy as a part of screening for colon cancer and family history of colon cancer. Her mother was diagnosed with colon cancer at age 80. PROCEDURE PERFORMED: Colonoscopy. PREOPERATIVE DIAGNOSIS: Screening for colon cancer and family history of colon cancer. IV sedation per Anesthesia. PROCEDURE: After informed consent was obtained, the patient, was brought into the endoscopy unit. IV sedation was administered by Anesthesia under continuous monitoring. Digital rectal examination was normal. Initially the Olympus CF-160 flexible video colonoscope was then inserted in the rectum, gradually advanced into the cecum without any difficulty. Careful examination was performed as the scope was gradually being withdrawn. Ileocecal valve and the appendiceal orifice were visualized and appeared normal. Prep was excellent. Mucosa of the cecum, ascending colon, transverse colon, descending colon, sigmoid colon, and rectum appeared normal. Retroflexion was performed in the rectum and no lesions were seen. The patient tolerated the procedure well. IMPRESSION: Normal-appearing colon from rectum to cecum with no evidence of colorectal neoplasia. RECOMMENDATIONS: Findings of this examination were discussed with the patient as well as her family. She was advised to have a repeat screening colonoscopy in 5 years because of the family history of colon cancer.
[2023-09-08 09:16] VITALS: RESP 16
[2023-09-08 09:27] VITALS: BP 142/80; PULSE 67
== END 2023-09-08 09:46 | disposition home or self-care (01) ==
LOC: ORWHC2ENDO 07:19
PROVIDERS: ATTEND Internal Medicine Gastroenterology
DX: Z12.11 Encounter for screening for malignant neoplasm of colon (principal); I10 Essential (primary) hypertension; I49.3 Ventricular premature depolarization; G47.33 Obstructive sleep apnea (adult) (pediatric); M50.30 Other cervical disc degeneration, unspecified cervical region; Z79.899 Other long term (current) drug therapy; Z80.0 Family history of malignant neoplasm of digestive organs; Z88.0 Allergy status to penicillin
CPT/HCPCS: 81025; 45378; J2704

== ENCOUNTER → 2024-01-27 | Outpatient (CLI) | payer BC ==
[2024-01-27 16:43] VITALS: BP 133/79; PULSE 48; RESP 16; TEMP 97.7
--- NOTE | 2024-01-27 17:42 | P.PROGSL ---
Subjective DATE: 01/27/2024 FOLLOW UP VISIT. Patient with obstructive sleep apnea hypopnea syndrome return to sleep center for follow-up visit. Information from previous visit have been reviewed. Patient is using PAP equipment every night for the whole night, getting PAP supplies in time. The patient does not have significant problems with the mask, PAP unit and humidification. [place] sleepiness scale is slightly increased to 12. I checked information from PAP unit. PAP unit pressure 5-15, average 14.2 cm H2O. Usage is 100% for more then 4 hours, average 6.7 hours per night. Leak is 4 l/m, which is in acceptable range. Apnea Hypopnea Index is 0.5, which is normal. MEDICATIONS none. During physical exam: GENERAL: A pleasant patient without any distress. VITAL SIGNS: Please see below, weight is 231.2 lbs. HEENT: PERRLA, EOMI.low position of soft palate, Mallapati 3. NECK: Supple. No JVD. LUNGS: Clear to percussion and to auscultation. Good air exchange. No wheezing or rhonchi. HEART: S1, S2 regular. ABDOMEN: Soft and nontender.[] EXTREMITIES: No clubbing or cyanosis. STRATEGIC CLIENT EXECUTIVE: Awake, alert, and oriented x3. No focal deficit. Impressions: 1. Obstructive sleep apnea-hypopnea syndrome. Patient demonstrated great compliance with treatment, benefiting from treatment. 2. Obesity, BMI 37.8, patient lost 4 pounds comparing with the previous visit. 3. Menopause. 4. Status post cervical discectomy 5. Strabismus Plan: 1. Continue using PAP equipment every night for the whole night. 2. Sleep hygiene with regular time in bed for at least 7.5-8 hours 3. PAP unit should stay lower then position of the head. 4. Advised patient to remove all remaining water from humidifier canister daily and make it dry after each usage. Refill canister with fresh distilled water before each usage. 5. Watching weight. 6. Precautions related to driving. No driving if feel any sleepiness. 7. I will maintain prescription for PAP supplies including mask, tube, filters. 8. Follow up visit in 8 months or earlier if patient has any problems. Thank you very much for allowing me to participate in the management of your patient. Antonio Patton MD, PhD, FAASM. Diplomat of [place] Board of Sleep Medicine, Sleep Medicine Board by [place] of Internal Medicine Shearing Shed Hand of [facility] [place] Objective - Vital Signs Vital Signs: Vital Signs Temp 97.7 F 01/27/24 16:42 Pulse 48 L 01/27/24 16:42 Resp 16 01/27/24 16:42 BP 133/79 01/27/24 16:42 Pulse Ox 97 01/27/24 16:42 FiO2 Intake & Output 01/26/24 01/27/24 01/27/24 18:59 06:59 18:59 Weight 104.78 kg
== END ==
LOC: 3 N SLEEP 16:01
PROVIDERS: ATTEND Internal Medicine
DX: G47.33 Obstructive sleep apnea (adult) (pediatric) (principal); E66.9 Obesity, unspecified; H50.9 Unspecified strabismus; Z78.0 Asymptomatic menopausal state; Z98.890 Other specified postprocedural states; Z68.37 Body mass index [BMI] 37.0-37.9, adult; Z99.89 Dependence on other enabling machines and devices; Z88.0 Allergy status to penicillin
CPT/HCPCS: 99212